=== PATIENT | female | born 1970 | race African-American/Black ===

== ENCOUNTER 2018-11-07 23:42 | Emergency (ER) | payer OTHER ==
[2018-11-07] MEDS ORDERED: EPINEPHRINE INJ/PF 1 MG/1 ML AMPULE IM ONE (23:50)
[2018-11-07] MEDS ORDERED: METHYLPREDNISOLONE INJ 125 MG/2 ML SDV IV ONE (23:50)
[2018-11-07] MEDS ORDERED: FAMOTIDINE INJ/PF 20 MG/2 ML SDV IV ONE (23:50)
[2018-11-07] MEDS ORDERED: DIPHENHYDRAMINE HCL 50 MG/ML VIAL IV ONE (23:50)
--- NOTE | 2018-11-07 23:53 | ER Document Report ---
ED General - General Stated Complaint: ALLERGIC REACTION Time Seen by Provider: 11/07/18 23:47 Primary Care Provider: CECILIA LOZANO MD [ACTIVE STAFF] - Follow up as needed Notes: Patient is a pleasant 48-year-old female presents with complaint of allergic reaction. She started having hives across her chest and neck. She does not feel like her throat was causing some difficulty breathing. She denies any tongue swelling. Said this happened once before 5 years ago after having allergy shots. This time she is unsure what may have triggered it. No new foods. No new medications. She does have a history of lupus and takes Plaque nil. She has been on Plaquenil since February and has not had any issues with it. She has no other complaints at this time. - Related Data Allergies/Adverse Reactions: No Known Allergies Allergy (Unverified 11/08/18 01:24) Past Medical History - Social History Smoking Status: Never Smoker Frequency of alcohol use: None Drug Abuse: None Family History: Reviewed & Not Pertinent Review of Systems - Review of Systems Notes: My Normal Review Basic REVIEW OF SYSTEMS: CONSTITUTIONAL : Denies fever, chills, or sweats. Denies recent illness. EENT: Sensation of throat swelling. CARDIOVASCULAR: Denies chest pain. RESPIRATORY: Denies cough, cold, or chest congestion. Denies shortness of breath, difficulty breathing, or wheezing. GASTROINTESTINAL: Denies abdominal pain. Denies nausea, vomiting, or diarrhea. MUSCULOSKELETAL: Denies neck or back pain or joint pain or swelling. SKIN: Hives-like rash on upper torso NEUROLOGICAL: Denies altered mental status or loss of consciousness. Denies headache. Denies weakness or paralysis or loss of use of either side. Denies problems with gait or speech. Denies sensory or motor loss. ALL OTHER SYSTEMS REVIEWED AND NEGATIVE. Physical Exam - Vital signs Vitals: Resp Pulse Ox 20 99 11/07/18 23:52 11/07/18 23:52 - Notes Notes: General Appearance: Well nourished, alert, cooperative, no acute distress, no obvious discomfort. Vitals: reviewed, See vital signs table. Head: no swelling or tenderness to the head Eyes: PERRL, EOMI, Conjuctiva clear Mouth: No decreasd moisture Throat: No tonsillar inflammation, No airway obstruction, No lymphadenopathy Neck: Supple, no neck tenderness Lungs: No wheezing, No rales, No rhonci, No accessory muscle use, good air exchange bilaterally. Heart: Normal rate, Regular rythm, No murmur, no rub Abdomen: Normal BS, soft, No rigidity, No abdominal tenderness, No guarding, no rebound, no abdominal masses, no organomegaly Extremities: strength 5/5 in all extremities, good pulses in all extremities, no swelling or tenderness in the extremities, no edema. Skin: warm, dry, appropriate color, hives-like rash on upper torso and some on upper back. No rash in extremities. Is blanchable. Is pruritic. Not painful. Neuro: speech clear, oriented x 3, normal affect, responds appropriately to questions. Course - Re-evaluation Re-evalutation: 11/08/18 00:59 On reevaluation rash is starting for a little bit. She still feels a sensation in her throat. She says it is not worsened. No difficulty breathing at this time. 11/08/18 03:11 Patient started feeling improved. Her rash is continuing to fade. She has no stridor. No difficulty breathing or swallowing. She has no tongue swelling or lip swelling. I feel she safe to be discharged home. I strongly encouraged her return to ER immediately if she has difficulty breathing, difficulty swallowing, has to use an EpiPen, worsening rash, or if she feels unwell. She is to follow- up with her primary care doctor on Saturday or Saturday for reevaluation. Patient agrees with plan and will be discharged home. Dictation of this chart was performed using voice recognition software; therefore, there may be some unintended grammatical errors. - Vital Signs Vital signs: Temp Pulse Resp BP Pulse Ox 16 114/64 97 11/08/18 03:01 11/08/18 03:00 11/08/18 03:01 Discharge - Discharge Clinical Impression: Urticaria Condition: Good Disposition: HOME, SELF-CARE Additional Instructions: Please return to the ER immediately if you have to use the Epi pen, have facial swelling, tongue swelling, throat swelling, difficulty breathing, or feel that your reaction is becoming severe. Please use the Epi pen if you have any facial swelling, tongue swelling, or difficulty breathing. Please take Benadryl 25 mg every 6 hours as needed for itching. Please take the prednisone as prescribed. Follow-up with your primary care doctor this week. Prescriptions: Epinephrine [Epipen 2-Florencio] 0.3 mg IM ASDIR PRN #1 packet PRN Reason: Prednisone [Deltasone 10 mg Tablet] 10 mg PO ASDIR PRN #36 tablet PRN Reason: Referrals: CECILIA LOZANO MD [ACTIVE STAFF] - 11/10/18
[2018-11-08 03:04] VITALS: BP 114/64
== END 2018-11-08 03:17 | disposition home or self-care (01) ==
LOC: ER 23:42
DX: L50.9 Urticaria, unspecified (principal)
CPT/HCPCS: 99283; 96372; 96374; 96375; J1200; J0171; J2930; S0028